=== PATIENT | female | born 1995 | race Two or more races ===

== ENCOUNTER 2024-04-18 01:50 | Inpatient (IN) | payer OTHER ==
[~2024-04-18] VITALS: Ht 165.1 cm; Wt 72.6 kg
[2024-04-18] MEDS ORDERED: PRENATAL + DHA1 EAC1 PO (01:55)
[2024-04-18] MEDS ORDERED: RINGERS SOLUTION,LACTATED 1,000 ML IV SCH (02:00)
[2024-04-18 02:35] LABS: HEMATOCRIT 35.9 % (36.0-45.00); HEMOGLOBIN 12.3 g/dL (12.0-15.00); MEAN CELL VOLUME 90.4 fL (80.00-100.00); MEAN CORPUSCULAR HGB CONC 34.3 g/dl (32.0-36.0); PH,URINE 6.5 (5.0-8.0); PLATELET COUNT 206 K/uL (150-450); RED BLOOD COUNT 3.98 M/uL (4.00-6.00); URINE APPEARANCE Turbid; URINE BILIRRUBIN Negative (NEGATIVE); URINE BLOOD Moderate; URINE COLOR Yellow; URINE GLUCOSE Negative (NEGATIVE); URINE KETONE Trace (NEGATIVE); URINE LEUKOCYTE Trace; URINE NITRATE Negative; URINE PROTEIN Trace (NEGATIVE)
[2024-04-18 02:38] LABS: URINE EPITHELIAL CELLS 124.4 uL (0.0-38.8); URINE RBC 295.9 uL (0.0-20.8); URINE WBC 100.3 uL (0.0-23.2)
[2024-04-18 02:44] LABS: URINE CAST 1.22 uL (0.0-1.40)
[2024-04-18 02:57] LABS: PROTHROMBIN TIME 9.3 SECONDS (9.0-11.5)
[2024-04-18 02:58] LABS: INR < 0.93; PARTIAL THROMBOPLASTIN TIME 25.5 SECONDS (22.0-34.0)
[2024-04-18 02:59] LABS: BILIRUBIN TOTAL 0.29 mg/dL (0.3-1.2); CREATININE SERUM 0.64 mg/dL (0.55-1.02); GFR 110.49; GLOBULINA 3.6 G/DL (2.4-3.5); POTASSIUM 3.71 mEq/L (3.5-5.1); TOTAL PROTEIN 6.6 gm/dL (6.4-8.2)
[2024-04-18] MEDS ORDERED: ACETAMINOPHEN 500 MG GEL..CAP PO PRN (05:15)
[2024-04-18] MEDS ORDERED: BENZOCAINE/MENTHOL 90 ML BOTTLE TOP PRN (05:15)
[2024-04-18] MEDS ORDERED: ERYTHROMYCIN BASE 1 GM TUBE OP SCH (05:30)
[2024-04-18] MEDS ORDERED: LIDOCAINE HCL 1% 10ML VIAL IJ ONE (05:30)
[2024-04-18] MEDS ORDERED: OXYTOCIN 1,000 ML IV SCH (05:30)
[2024-04-18] MEDS ORDERED: CHLORHEXIDINE GLUCONATE 120 ML BOTTLE TOP SCH (05:30)
[2024-04-18] MEDS ORDERED: PNV,CALCIUM 72/IRON/FOLIC ACID 1 TAB TABLET PO SCH (09:00)
[2024-04-18 18:46] LABS: HEMATOCRIT 33.8 % (36.0-45.00); HEMOGLOBIN 11.3 g/dL (12.0-15.00); MEAN CELL VOLUME 93.7 fL (80.00-100.00); MEAN CORPUSCULAR HEMOGLOBIN 31.3 pg (27.00-32.0); MEAN CORPUSCULAR HGB CONC 33.4 g/dl (32.0-36.0); PLATELET COUNT 206 K/uL (150-450); RED BLOOD COUNT 3.61 M/uL (4.00-6.00); RED CELL DISTRIBUTION WIDTH 13.8 % (11.5-14.5)
[2024-04-20] MEDS ORDERED: DOCUSATE SODIUM 100MG CAP PO SCH (21:00)
== END 2024-04-21 18:11 | disposition home or self-care (01) | DRG 807 ==
LOC: OB/GYN 01:50 → LDR 01:50 → OB/GYN 05:28
PROVIDERS: Obstetrics & Gynecology; ADMIT Specialist; ATTEND Specialist
PROC: 10E0XZZ Delivery of Products of Conception, External Approach (ICD-10-PCS; principal; 2024-04-18)
PROC: 0W8NXZZ Division of Female Perineum, External Approach (ICD-10-PCS; 2024-04-18)
PROC: 4A1HXCZ Monitoring of Products of Conception, Cardiac Rate, External Approach (ICD-10-PCS; 2024-04-18)
DX: O80 Encounter for full-term uncomplicated delivery (principal); Z37.0 Single live birth; Z3A.37 37 weeks gestation of pregnancy; Z20.822 Contact with and (suspected) exposure to COVID-19